=== PATIENT | female | born 1955 | race Caucasian/White ===

== ENCOUNTER 2018-10-30 02:29 | Observation (INO) | payer BC ==
[2018-10-30] MEDS ORDERED: Sodium Chloride 0.9% 1,000 ML IV ONE (02:31)
[2018-10-30] MEDS ORDERED: Haloperidol Lactate 5 MG/ML SDV IM ONE (02:34)
[2018-10-30] MEDS ORDERED: Haloperidol Lactate 5 MG/ML SDV ONE (02:35)
--- NOTE | 2018-10-30 02:40 | EDM.PDOC ---
ED HPI GENERAL MEDICAL PROBLEM - General Stated Complaint: AMBULANCE Time Seen by Provider: 10/30/18 02:36 Source of Information: Reports: Patient - History of Present Illness INITIAL COMMENTS - FREE TEXT/NARRATIVE: HISTORY AND PHYSICAL: History of present illness: []Elliott presents from [facility] via EMS Initial call was for stroke code information is provided via EMS and police Initially police and EMS responded to a person that was unresponsive at [facility] , she is apparently an employee there, she had went for a "lunch" break at 2 a.m., at 1:55 AM police responded to the recall apparently she was unresponsive on arrival beds suspected some facial droop at that time she was not responding to sternal rub, no rhythmic activity was noted activity. She arrives to the emergency room she is awake combative confused, she speaks clearly no slurring however she is very agitated chest symmetrical and purposeful limb movement in all limbs Review of systems: As per history of present illness and below otherwise all systems reviewed and negative. Past medical history: As per history of present illness and as reviewed below otherwise noncontributory. Surgical history: As per history of present illness and as reviewed below otherwise noncontributory. Social history: No reported history of drug or alcohol abuse. Family history: As per history of present illness and as reviewed below otherwise noncontributory. Physical exam: HEENT: Atraumatic, normocephalic, pupils reactive, negative for conjunctival pallor or scleral icterus, mucous membranes moist, throat clear, neck supple, nontender, trachea midline. Lungs: Clear to auscultation, breath sounds equal bilaterally, chest nontender. Heart: S1S2, regular, negative for clicks, rubs, or JVD. Abdomen: Soft, nondistended, nontender. Negative for masses or hepatosplenomegaly. Negative for costovertebral tenderness. Pelvis: Stable nontender. Genitourinary: Deferred. Rectal: Deferred. Extremities: Atraumatic, negative for cords or calf pain. Neurovascular unremarkable. Neuro: Awake, alert, oriented. Cranial nerves II through XII unremarkable. Cerebellum unremarkable. Motor and sensory unremarkable throughout. Exam nonfocal. Diagnostics: []CBC CMP UA troponin INR TSH prolactin EKG Chest [address] no contrast Therapeutics: [] ativan 1 mg IV haloperidol 10 mg IM Aspirin 324 mg chewable Impression: []Altered Mental status-resolved agitation resolved Hyperglycemia leukocytosis no left shift hypothyroid Definitive disposition and diagnosis as appropriate pending reevaluation and review of above. - Related Data Allergies Allergy/AdvReac Type Severity Reaction Status Date / Time No Known Allergies Allergy Verified 03/10/14 10:33 Home Meds: Home Meds . [No Known Home Meds] 03/10/14 [History] ED ROS GENERAL - Review of Systems Review Of Systems: See Below ED EXAM, GENERAL - Physical Exam Exam: See Below Course - Vital Signs Last Recorded V/S: Last Vital Signs Temp 97.1 F 10/30/18 03:48 Pulse 88 10/30/18 03:48 Resp 18 10/30/18 03:48 BP 159/81 H 10/30/18 03:48 Pulse Ox 97 10/30/18 03:48 - Orders/Labs/Meds Orders: Active Orders 24 hr Category Date Time Status EKG Documentation Completion [RC] STAT Care 10/30/18 02:31 Active Labs: Laboratory Tests 10/30/18 10/30/18 10/30/18 Range/Units 02:30 02:30 02:30 WBC 24.55 H (4.0-11.0) K/uL RBC 5.01 (4.30-5.90) M/uL Hgb 15.7 (12.0-16.0) g/dL Hct 47.5 H (36.0-46.0) % MCV 94.8 (80.0-98.0) fL MCH 31.3 (27.0-32.0) pg MCHC 33.1 (31.0-37.0) g/dL RDW Std Deviation 49.8 (28.0-62.0) fl RDW Coeff of Rick 15 (11.0-15.0) % Plt Count 329 (150-400) K/uL MPV 9.80 (7.40-12.00) fL Neut % (Auto) 56.8 (48.0-80.0) % Lymph % (Auto) 39.2 (16.0-40.0) % [place] % (Auto) 3.6 (0.0-15.0) % Eos % (Auto) 0.2 (0.0-7.0) % Baso % (Auto) 0.2 (0.0-1.5) % Neut # (Auto) 13.9 H (1.4-5.7) K/uL Lymph # (Auto) 9.6 H (0.6-2.4) K/uL [place] # (Auto) 0.9 H (0.0-0.8) K/uL Eos # (Auto) 0.1 (0.0-0.7) K/uL Baso # (Auto) 0.1 (0.0-0.1) K/uL Nucleated RBC % 0.0 /100WBC Nucleated RBCs # 0 K/uL INR 0.97 Sodium 140 (136-145) mmol/L Potassium 3.8 (3.5-5.1) mmol/L Chloride 101 (98-107) mmol/L Carbon Dioxide 20.5 L (21.0-32.0) mmol/L BUN 18 (7.0-18.0) mg/dL Creatinine 1.1 H (0.6-1.0) mg/dL Est Cr Clr Drug Dosing 48.33 mL/min Estimated GFR (MDRD) 50.5 ml/min Glucose 220 H (74-106) mg/dL Calcium 9.2 (8.5-10.1) mg/dL Total Bilirubin 0.3 (0.2-1.0) mg/dL AST 18 (15-37) IU/L ALT 21 (14-63) IU/L Alkaline Phosphatase 111 (46-116) U/L Troponin I < 0.050 (0.000-0.056) ng/mL Total Protein 7.8 (6.4-8.2) g/dL Albumin 4.1 (3.4-5.0) g/dL Globulin 3.7 (2.6-4.0) g/dL Albumin/Globulin Ratio 1.1 (0.9-1.6) TSH 3rd Generation 20.34 H (0.36-3.74) uIU/mL Prolactin 14.1 ng/mL Urine Color Urine Appearance Urine pH (5.0-8.0) Ur Specific [place] (1.001-1.035) Urine Protein (NEGATIVE) mg/dL Urine Glucose (UA) (NEGATIVE) mg/dL Urine Ketones (NEGATIVE) mg/dL Urine Occult Blood (NEGATIVE) Urine Nitrite (NEGATIVE) Urine Bilirubin (NEGATIVE) Urine Urobilinogen (<2.0) EU/dL Ur Leukocyte Esterase (NEGATIVE) Urine RBC (0-2/HPF) Urine WBC (0-5/HPF) Ur Epithelial Cells (NONE-FEW) Urine Bacteria (NEGATIVE) Urine Opiates Screen (NEGATIVE) Ur Oxycodone Screen (NEGATIVE) Urine Methadone Screen (NEGATIVE) Ur Barbiturates Screen (NEGATIVE) Ur Phencyclidine Scrn (NEGATIVE) Ur Amphetamine Screen (NEGATIVE) U Methamphetamines Scrn (NEGATIVE) U Benzodiazepines Scrn (NEGATIVE) U Cocaine Metab Screen (NEGATIVE) U Marijuana (THC) Screen (NEGATIVE) Ethyl Alcohol <3 mg/dL 10/30/18 10/30/18 Range/Units 03:25 03:25 WBC (4.0-11.0) K/uL RBC (4.30-5.90) M/uL Hgb (12.0-16.0) g/dL Hct (36.0-46.0) % MCV (80.0-98.0) fL MCH (27.0-32.0) pg MCHC (31.0-37.0) g/dL RDW Std Deviation (28.0-62.0) fl RDW Coeff of Rick (11.0-15.0) % Plt Count (150-400) K/uL MPV (7.40-12.00) fL Neut % (Auto) (48.0-80.0) % Lymph % (Auto) (16.0-40.0) % [place] % (Auto) (0.0-15.0) % Eos % (Auto) (0.0-7.0) % Baso % (Auto) (0.0-1.5) % Neut # (Auto) (1.4-5.7) K/uL Lymph # (Auto) (0.6-2.4) K/uL [place] # (Auto) (0.0-0.8) K/uL Eos # (Auto) (0.0-0.7) K/uL Baso # (Auto) (0.0-0.1) K/uL Nucleated RBC % /100WBC Nucleated RBCs # K/uL INR Sodium (136-145) mmol/L Potassium (3.5-5.1) mmol/L Chloride (98-107) mmol/L Carbon Dioxide (21.0-32.0) mmol/L BUN (7.0-18.0) mg/dL Creatinine (0.6-1.0) mg/dL Est Cr Clr Drug Dosing mL/min Estimated GFR (MDRD) ml/min Glucose (74-106) mg/dL Calcium (8.5-10.1) mg/dL Total Bilirubin (0.2-1.0) mg/dL AST (15-37) IU/L ALT (14-63) IU/L Alkaline Phosphatase (46-116) U/L Troponin I (0.000-0.056) ng/mL Total Protein (6.4-8.2) g/dL Albumin (3.4-5.0) g/dL Globulin (2.6-4.0) g/dL Albumin/Globulin Ratio (0.9-1.6) TSH 3rd Generation (0.36-3.74) uIU/mL Prolactin ng/mL Urine Color YELLOW Urine Appearance CLEAR Urine pH 6.0 (5.0-8.0) Ur Specific [place] 1.020 (1.001-1.035) Urine Protein TRACE H (NEGATIVE) mg/dL Urine Glucose (UA) 100 H (NEGATIVE) mg/dL Urine Ketones NEGATIVE (NEGATIVE) mg/dL Urine Occult Blood NEGATIVE (NEGATIVE) Urine Nitrite NEGATIVE (NEGATIVE) Urine Bilirubin NEGATIVE (NEGATIVE) Urine Urobilinogen 0.2 (<2.0) EU/dL Ur Leukocyte Esterase NEGATIVE (NEGATIVE) Urine RBC 0-2 (0-2/HPF) Urine WBC 0-2 (0-5/HPF) Ur Epithelial Cells OCCASIONAL (NONE-FEW) Urine Bacteria RARE (NEGATIVE) Urine Opiates Screen NEGATIVE (NEGATIVE) Ur Oxycodone Screen NEGATIVE (NEGATIVE) Urine Methadone Screen NEGATIVE (NEGATIVE) Ur Barbiturates Screen NEGATIVE (NEGATIVE) Ur Phencyclidine Scrn NEGATIVE (NEGATIVE) Ur Amphetamine Screen NEGATIVE (NEGATIVE) U Methamphetamines Scrn NEGATIVE (NEGATIVE) U Benzodiazepines Scrn NEGATIVE (NEGATIVE) U Cocaine Metab Screen NEGATIVE (NEGATIVE) U Marijuana (THC) Screen NEGATIVE (NEGATIVE) Ethyl Alcohol mg/dL Meds: Medications Discontinued Medications Generic Name Dose Route Start Last Admin Trade Name Freq PRN Reason Stop Dose Admin Aspirin 324 mg 10/30/18 03:42 10/30/18 03:49 Aspirin PO 10/30/18 03:43 324 mg ONETIME ONE Administration Haloperidol Lactate 10 mg 01/24/19 02:34 10/30/18 02:48 Haldol IM 10/30/18 02:35 10 mg ONETIME ONE Administration Haloperidol Lactate Confirm 10/30/18 02:35 10/30/18 02:48 Haldol Administered 10/30/18 02:36 Not Given Dose 10 mg .ROUTE .STK-MED ONE Sodium Chloride 1,000 mls @ 999 mls/hr 10/30/18 02:31 10/30/18 02:47 Normal Saline IV 10/30/18 03:31 999 mls/hr STAT ONE Administration Departure - Departure Time of Disposition: 03:55 Disposition: Refer to Observation Condition: Fair Clinical Impression: Altered mental status - Discharge Information - My Orders Last 24 Hours: My Active Orders 10/30/18 02:31 EKG Documentation Completion [RC] STAT - Assessment/Plan Last 24 Hours: My Active Orders 10/30/18 02:31 EKG Documentation Completion [RC] STAT
--- NOTE | 2018-10-30 02:59 | CT ---
INDICATION: Right-sided abnormalities, change in mental status TECHNIQUE: CT head without contrast. COMPARISON: None FINDINGS: CSF spaces: Within normal limits for age. Brain parenchyma: The valles-white differentiation is normal. No sign of mass, hemorrhage, or midline shift. Skull base and calvarium: Maxillary sinus mucosal thickening. The visualized orbits are grossly unremarkable. No skull fractures. IMPRESSION: Unremarkable noncontrast head CT. Dictated by Enrico Moses MD @ 10/30/2018 2:57:38 AM Please note that all CT scans at this facility use dose modulation, iterative reconstruction, and/or weight-based dosing when appropriate to reduce radiation dose to as low as reasonably achievable. Dictated by: Enrico Moses MD @ 10/30/2018 02:57:46 (Electronically Signed)
--- NOTE | 2018-10-30 03:19 | CR ---
INDICATION: STROKE CODE-PAIN,SOB TECHNIQUE: Chest 1 view. COMPARISON: None. FINDINGS: Cardiovascular and mediastinum: Heart size and vasculature are normal in caliber and appearance. Mediastinum is within normal limits. Lungs and pleural space: Lungs are clear. No sign of infiltrate or mass. No sign of pleural effusion. No pneumothorax. Bones and soft tissues: No significant findings. IMPRESSION: Unremarkable chest. Dictated by: Enrico Moses MD @ 10/30/2018 03:18:12 (Electronically Signed)
[2018-10-30 03:22] LABS: CHLORIDE,CL 101 mmol/L (98-107); SODIUM,NA 140 mmol/L (136-145)
[2018-10-30] MEDS ORDERED: Aspirin 81 MG Tab.Chew PO ONE (03:42)
[2018-10-30] MEDS: Acetaminophen 325 MG Tab PO PRN ×2 (06:29→12:46)
--- NOTE | 2018-10-30 08:02 | PCM.HP ---
H&P History of Present Illness - General Date of Service: 10/30/18 Admit Problem/Dx: Admission Diagnosis/Problem Admission Diagnosis/Problem Altered mental status Source of Information: Patient History Limitations: Reports: No Limitations - History of Present Illness Initial Comments - Free Text/Narative: This 63 year old female with pmh of tobacco use and untreated HTN presented to the ED via EMS last night after being found unresponsive at her work, [employer]. Per reports she was found after she took a break and was noted to be unresponsive and initially no pulse was noted. By the time she arrived to the ED she was agitated and combative. She was given Haldol. Visiting with Karis this morning, she is alert and oriented. She does not recall much from the night. She does remember going to work and having a horrible headache, one of the worst she has ever had. Denies blurred vision or double vision and no focal deficits. She reports she took a break around midnight and took some Excedrin Migraine worked for a little longer than took another break , unsure of time and then she woke up here. She denies chest pain, SOB, abdominal pain. No neck pain, no current headache, no fevers chills. She reports feeling fine other than the headache the previous day leading up to last night. Her boyfriend at the bedside denies odd behaviors or confusion from her as well. She denies hx of CAD, DM or CVA. No history of migraines, only minor headaches every now and then. No hx of seizures. Family hx of CVA with father otherwise she doesn't know other history or cant remember it. She does not take any medications or supplements at home. No recreational drug use, no alcohol use and smokes 1/3 ppd. She did quit for 14 years then restarted over the last year or so. In the ed Leukocytosis noted at 24,000, Cr 1.1 troponin negative. CXR negative. Headt CT negative. Tox screen negative, alcohol negative. UA negative. TSH noted to be 20.34 and prolactin 14.1. She was admitted for AMS. No PCP currently. Headache Pain Score (Numeric/FACES): 6 - Related Data Allergies/Adverse Reactions: Allergies Allergy/AdvReac Type Severity Reaction Status Date / Time No Known Allergies Allergy Verified 03/10/14 10:33 Home Medications: Home Meds . [No Known Home Meds] 03/10/14 [History] Past Medical History HEENT History: Reports: None Cardiovascular History: Reports: High Cholesterol, Hypertension. Denies: Afib, Blood Clots/VTE/DVT, CAD, NE, Syncope Respiratory History: Reports: COPD (once told she might have COPD). Denies: Sleep Apnea Gastrointestinal History: Reports: None. Denies: GERD, GI Bleed Genitourinary History: Reports: None Musculoskeletal History: Reports: None Neurological History: Reports: None. Denies: Brain Injury, Cerebral Aneurysms, CVA, Headaches, Chronic, Seizure, TIA Psychiatric History: Reports: None. Denies: Anxiety, Depression Endocrine/Metabolic History: Reports: None. Denies: Diabetes, Type II, Hypothyroidism, Obesity/BMI 30+ Hematologic History: Reports: None Immunologic History: Reports: None Oncologic (Cancer) History: Reports: None Dermatologic History: Reports: None - Infectious Disease History Infectious Disease History: Reports: None Other Infectious Disease History: Unable to obtain - Past Surgical History Head Surgeries/Procedures: Reports: None Cardiovascular Surgical History: Reports: None Female Surgical History: Reports: Section Social & Family History - Family History Cardiac: Reports: Hypertension. Denies: Afib Neurological: Reports: CVA (father) - Tobacco Use Smoking Status *Q: Current Every Day Smoker Years of Tobacco use: 7 Packs/Tins Daily: 0.3 Used Tobacco, but Quit: No - Caffeine Use Caffeine Use: Reports: Coffee - Alcohol Use Alcohol Use History: No - Recreational Drug Use Recreational Drug Use: No - Living Situation & Occupation Living situation: Reports: Single Occupation: Employed H&P Review of Systems - Review of Systems: Review Of Systems: See Below General: Reports: Fatigue (feeling very tired this morning). Denies: Fever, Chills, Malaise, Weakness HEENT: Reports: Headaches (bad headache last night before event.). Denies: Sinus Congestion, Sore Throat, Vertigo Pulmonary: Denies: Shortness of Breath, Cough, Sputum Cardiovascular: Reports: No Symptoms. Denies: Chest Pain, Palpitations, Lightheadedness, Syncope Gastrointestinal: Reports: No Symptoms. Denies: Abdominal Pain, Black Stool, Bloody Stool, Decreased Appetite, Nausea, Vomiting Genitourinary: Reports: No Symptoms. Denies: Dysuria, Frequency, Burning, Pain Musculoskeletal: Reports: No Symptoms. Denies: Neck Pain, Shoulder Pain Skin: Reports: No Symptoms Psychiatric: Reports: No Symptoms Neurological: Reports: Headache. Denies: Confusion, Numbness, Paresthesia, Trouble Speaking, Difficulty Walking, Weakness, Change in Speech Hematologic/Lymphatic: Reports: No Symptoms Immunologic: Reports: No Symptoms Exam - Exam Exam: See Below - Vital Signs Vital Signs: Last Vital Signs Temp 97.7 F 10/30/18 05:10 Pulse 78 10/30/18 05:10 Resp 16 10/30/18 05:10 BP 148/86 H 10/30/18 05:10 Pulse Ox 95 10/30/18 05:10 Weight: 58.468 kg - Exam General: Alert, Oriented, Cooperative HEENT: Conjunctiva Clear, Posterior Pharynx Clear, Other (some bite rodriguez noted on R side on tongue.) Neck: Supple, Trachea Midline, Full Range of Motion Lungs: Clear to Auscultation, Normal Respiratory Effort Cardiovascular: Regular Rate, Regular Rhythm, Normal S1, Normal S2. No: Irregular Rhythm, Tachycardia, Systolic Murmur GI/Abdominal Exam: Normal Bowel Sounds, Soft, Non-Tender, No Mass Extremities: Normal Inspection, Normal Range of Motion, Non-Tender, No Pedal Edema, Normal Capillary Refill Neuro Extensive - Mental Status: Alert, Oriented x3, Normal Mood/Affect, Normal Cognition Neuro Extensive - Motor, Sensory, Reflexes: CN II-XII Intact. No: Abnormal Gait , Tongue Deviation (L), Tongue Deviation (R), Expressive Aphasia, Facial palsy ( L), Facial Palsy (R), Facial Palsy w Forehead, Facial Palsy wo Forehead, Hemeplagia (R), Hemeplagia (L), Abnormal Light Touch, Abnormal Motor, Abnormal Pin Prick, Abn 2 Pt Discrimination Psychiatric: Alert, Anxious - Patient Data Lab Results Last 24 hrs: Laboratory Results - last 24 hr 10/30/18 10/30/18 10/30/18 Range/Units 02:30 02:30 02:30 WBC 24.55 H (4.0-11.0) K/uL RBC 5.01 (4.30-5.90) M/uL Hgb 15.7 (12.0-16.0) g/dL Hct 47.5 H (36.0-46.0) % MCV 94.8 (80.0-98.0) fL MCH 31.3 (27.0-32.0) pg MCHC 33.1 (31.0-37.0) g/dL RDW Std Deviation 49.8 (28.0-62.0) fl RDW Coeff of Rick 15 (11.0-15.0) % Plt Count 329 (150-400) K/uL MPV 9.80 (7.40-12.00) fL Neut % (Auto) 56.8 (48.0-80.0) % Lymph % (Auto) 39.2 (16.0-40.0) % [place] % (Auto) 3.6 (0.0-15.0) % Eos % (Auto) 0.2 (0.0-7.0) % Baso % (Auto) 0.2 (0.0-1.5) % Neut # (Auto) 13.9 H (1.4-5.7) K/uL Lymph # (Auto) 9.6 H (0.6-2.4) K/uL [place] # (Auto) 0.9 H (0.0-0.8) K/uL Eos # (Auto) 0.1 (0.0-0.7) K/uL Baso # (Auto) 0.1 (0.0-0.1) K/uL Nucleated RBC % 0.0 /100WBC Nucleated RBCs # 0 K/uL INR 0.97 Sodium 140 (136-145) mmol/L Potassium 3.8 (3.5-5.1) mmol/L Chloride 101 (98-107) mmol/L Carbon Dioxide 20.5 L (21.0-32.0) mmol/L BUN 18 (7.0-18.0) mg/dL Creatinine 1.1 H (0.6-1.0) mg/dL Est Cr Clr Drug Dosing 48.33 mL/min Estimated GFR (MDRD) 50.5 ml/min Glucose 220 H (74-106) mg/dL Calcium 9.2 (8.5-10.1) mg/dL Total Bilirubin 0.3 (0.2-1.0) mg/dL AST 18 (15-37) IU/L ALT 21 (14-63) IU/L Alkaline Phosphatase 111 (46-116) U/L Troponin I < 0.050 (0.000-0.056) ng/mL Total Protein 7.8 (6.4-8.2) g/dL Albumin 4.1 (3.4-5.0) g/dL Globulin 3.7 (2.6-4.0) g/dL Albumin/Globulin Ratio 1.1 (0.9-1.6) TSH 3rd Generation 20.34 H (0.36-3.74) uIU/mL Prolactin 14.1 ng/mL Urine Color Urine Appearance Urine pH (5.0-8.0) Ur Specific [place] (1.001-1.035) Urine Protein (NEGATIVE) mg/dL Urine Glucose (UA) (NEGATIVE) mg/dL Urine Ketones (NEGATIVE) mg/dL Urine Occult Blood (NEGATIVE) Urine Nitrite (NEGATIVE) Urine Bilirubin (NEGATIVE) Urine Urobilinogen (<2.0) EU/dL Ur Leukocyte Esterase (NEGATIVE) Urine RBC (0-2/HPF) Urine WBC (0-5/HPF) Ur Epithelial Cells (NONE-FEW) Urine Bacteria (NEGATIVE) Urine Opiates Screen (NEGATIVE) Ur Oxycodone Screen (NEGATIVE) Urine Methadone Screen (NEGATIVE) Ur Barbiturates Screen (NEGATIVE) Ur Phencyclidine Scrn (NEGATIVE) Ur Amphetamine Screen (NEGATIVE) U Methamphetamines Scrn (NEGATIVE) U Benzodiazepines Scrn (NEGATIVE) U Cocaine Metab Screen (NEGATIVE) U Marijuana (THC) Screen (NEGATIVE) Ethyl Alcohol <3 mg/dL 10/30/18 10/30/18 Range/Units 03:25 03:25 WBC (4.0-11.0) K/uL RBC (4.30-5.90) M/uL Hgb (12.0-16.0) g/dL Hct (36.0-46.0) % MCV (80.0-98.0) fL MCH (27.0-32.0) pg MCHC (31.0-37.0) g/dL RDW Std Deviation (28.0-62.0) fl RDW Coeff of Rick (11.0-15.0) % Plt Count (150-400) K/uL MPV (7.40-12.00) fL Neut % (Auto) (48.0-80.0) % Lymph % (Auto) (16.0-40.0) % [place] % (Auto) (0.0-15.0) % Eos % (Auto) (0.0-7.0) % Baso % (Auto) (0.0-1.5) % Neut # (Auto) (1.4-5.7) K/uL Lymph # (Auto) (0.6-2.4) K/uL [place] # (Auto) (0.0-0.8) K/uL Eos # (Auto) (0.0-0.7) K/uL Baso # (Auto) (0.0-0.1) K/uL Nucleated RBC % /100WBC Nucleated RBCs # K/uL INR Sodium (136-145) mmol/L Potassium (3.5-5.1) mmol/L Chloride (98-107) mmol/L Carbon Dioxide (21.0-32.0) mmol/L BUN (7.0-18.0) mg/dL Creatinine (0.6-1.0) mg/dL Est Cr Clr Drug Dosing mL/min Estimated GFR (MDRD) ml/min Glucose (74-106) mg/dL Calcium (8.5-10.1) mg/dL Total Bilirubin (0.2-1.0) mg/dL AST (15-37) IU/L ALT (14-63) IU/L Alkaline Phosphatase (46-116) U/L Troponin I (0.000-0.056) ng/mL Total Protein (6.4-8.2) g/dL Albumin (3.4-5.0) g/dL Globulin (2.6-4.0) g/dL Albumin/Globulin Ratio (0.9-1.6) TSH 3rd Generation (0.36-3.74) uIU/mL Prolactin ng/mL Urine Color YELLOW Urine Appearance CLEAR Urine pH 6.0 (5.0-8.0) Ur Specific [place] 1.020 (1.001-1.035) Urine Protein TRACE H (NEGATIVE) mg/dL Urine Glucose (UA) 100 H (NEGATIVE) mg/dL Urine Ketones NEGATIVE (NEGATIVE) mg/dL Urine Occult Blood NEGATIVE (NEGATIVE) Urine Nitrite NEGATIVE (NEGATIVE) Urine Bilirubin NEGATIVE (NEGATIVE) Urine Urobilinogen 0.2 (<2.0) EU/dL Ur Leukocyte Esterase NEGATIVE (NEGATIVE) Urine RBC 0-2 (0-2/HPF) Urine WBC 0-2 (0-5/HPF) Ur Epithelial Cells OCCASIONAL (NONE-FEW) Urine Bacteria RARE (NEGATIVE) Urine Opiates Screen NEGATIVE (NEGATIVE) Ur Oxycodone Screen NEGATIVE (NEGATIVE) Urine Methadone Screen NEGATIVE (NEGATIVE) Ur Barbiturates Screen NEGATIVE (NEGATIVE) Ur Phencyclidine Scrn NEGATIVE (NEGATIVE) Ur Amphetamine Screen NEGATIVE (NEGATIVE) U Methamphetamines Scrn NEGATIVE (NEGATIVE) U Benzodiazepines Scrn NEGATIVE (NEGATIVE) U Cocaine Metab Screen NEGATIVE (NEGATIVE) U Marijuana (THC) Screen NEGATIVE (NEGATIVE) Ethyl Alcohol mg/dL Result Diagrams: 10/30/18 08:23 10/30/18 08:23 EKG INTERPRETATION EKG Date: 10/30/18 Rhythm: NSR P-Wave: Present QRS: Normal ST-T: Normal QT: Normal *Q Meaningful Use (ADM) - VTE Risk Assess *Q Each Risk Factor Represents 1 Point: None Total Score 1 Point Risk Factors: 0 Each Risk Factor Represents 2 Points: Age 60 - 74 Years Total Score 2 Point Risk Factors: 2 Each Risk Factor Represents 3 Points: None Total Score 3 Point Risk Factors: 0 Each Risk Factor Represents 5 Points: None Total Score 5 Point Risk Factors: 0 Venous Thromboembolism Risk Factor Score *Q: 2 - Problem List (1) Altered mental status SNOMED Code(s): 054609469 ICD Code: R41.82 - ALTERED MENTAL STATUS, UNSPECIFIED Status: Acute Current Visit: No (2) HTN (hypertension) SNOMED Code(s): 97567161 ICD Code: I10 - ESSENTIAL (PRIMARY) HYPERTENSION Status: Acute Current Visit: Yes (3) Hypothyroid SNOMED Code(s): 18927778 ICD Code: E03.9 - HYPOTHYROIDISM, UNSPECIFIED Status: Acute Current Visit : Yes (4) Tobacco abuse SNOMED Code(s): 812264527 ICD Code: Z72.0 - TOBACCO USE Status: Acute Current Visit: Yes Problem List Initiated/Reviewed/Updated: Yes Orders Last 24hrs: Active Orders 24 hr Category Date Time Status Admission Status [Patient Status] [ADT] Stat ADT 10/30/18 03:56 Active EKG Documentation Completion [RC] STAT Care 10/30/18 02:31 Active Telemetry Monitoring [Cardiac Monitoring] [RC] . Care 10/30/18 05:20 Active DIRECTED Regular Diet [DIET] Diet 10/30/18 Breakfast Active Acetaminophen [Tylenol] Med 10/30/18 05:20 Active 650 mg PO Q6H PRN Medication Orders Acetaminophen (Tylenol) 650 mg PO Q6H PRN PRN Reason: Headache Last Admin: 10/30/18 06:29 Dose: 650 mg Assessment/Plan Comment:: This 63 year old female admitted with AMS 1. AMS: Unclear of etiology. Spoke with Dr Savage regarding case. Will obtained MRI/MRA brain today and further evaluate. Obtain ECHO and monitor on telemetry. CVA less likely, seizure? Will need further work up as outpatient as well and will be scheduled to see Dr Savage as outpatient. Obtain A1c, Lipid panel. Allow elevated BP now unti MRI completed. Spoke to Karis regarding tobacco cessation, she is not interested at this time. She is ambulating well and has no focal deficits, No PT/OT or ST needed at this time. Will continue to monitor. 2. HTN: Monitor at this time. May need antibypertensive started prior to discharge. 3. Hypothyroidism: TSH elevated, will obtained T4. Will start Levothyroxine 75 mcg now. VTE prophylaxis: SCDs Dispo: 1 day pending improvement.
[2018-10-30 09:00] LABS: CHLORIDE,CL 108 mmol/L (98-107); SODIUM,NA 142 mmol/L (136-145)
[2018-10-30 09:43] LABS: HEMOGLOBIN A1C 5.8 % (4.5-6.2)
[2018-10-30] MEDS ORDERED: Ondansetron 4 MG Tab.DIS PO PRN (10:40)
[2018-10-30] MEDS: Levothyroxine 75 MCG Tab PO SCH (11:52)
[2018-10-30] MEDS ORDERED: Gadobenate Dimeglumine 529 MG/ML 20 ML SDV IVPUSH STA (13:30)
[2018-10-30] MEDS ORDERED: LORazepam 2 MG/ML SDV IVPUSH ONE (14:42)
--- NOTE | 2018-10-30 16:21 | MR ---
EXAMINATION: MRI of the brain without contrast HISTORY: Syncope, headache COMPARISON: CT head dated 10/30/2018 TECHNIQUE: Multiplanar and multisequence imaging obtained of the brain without contrast. Motion artifact is noted on several sequences. FINDINGS: There are multifocal areas of increased cortical to subcortical FLAIR signal within the posterior frontal and parietal regions. There is likely a small focus of increased FLAIR signal also within the right cerebellum. These regions do not demonstrate definitively increased diffusion signal. No blooming on the SWI imaging. There is no defined mass, mass effect, or midline shift. No extra-axial fluid collection. The orbits and globes are symmetric. Mild mucosal thickening within the maxillary sinuses. Trace fluid within the right mastoid air cells. Middle ears are otherwise clear. Expected flow voids are present. The midbrain is grossly unremarkable. Ventricles and sulci are symmetric. Calvarial signal is normal. Craniocervical junction is normal. IMPRESSION: 1. Multifocal areas of cortical and subcortical FLAIR signal abnormalities noted bilaterally. Etiology is uncertain however these are somewhat near the watershed zones and could represent infarcts however no abnormal diffusion restriction is demonstrated. Posterior reversible encephalopathy syndrome or a vasculitis is also a consideration. Postcontrast imaging may be beneficial. 2. Mild paranasal sinus disease.
--- NOTE | 2018-10-30 16:25 | MR ---
EXAMINATION: MRA head and neck HISTORY: Syncope COMPARISON: None TECHNIQUE: [id number] imaging obtained through the head and neck without contrast. MIP reconstructions obtained. Moderate motion artifact noted on the neck imaging. FINDINGS: MRA neck: The left common carotid and the trachea cephalic shape. Common origin. Common carotid and vertebral arteries appear grossly normal. Internal carotid arteries are not optimally characterized due to motion however appear grossly patent. Vertebral arteries otherwise appear codominant. MRA head: The vertebral basilar system appears normal. The distal internal carotid arteries are patent. The middle, anterior, and posterior cerebral arteries are normal. The posterior communicating arteries are diminutive the anterior communicating artery is normal. IMPRESSION: 1. Moderate motion artifact noted within the neck however otherwise grossly unremarkable intracranial and extracranial arterial circulation.
[2018-10-30] MEDS ORDERED: Labetalol 20 MG/4 ML Syringe IVPUSH PRN (16:45)
[2018-10-31] MEDS: Acetaminophen 325 MG Tab PO PRN (05:39)
[2018-10-31 06:11] LABS: CHLORIDE,CL 107 mmol/L (98-107); SODIUM,NA 141 mmol/L (136-145)
[2018-10-31] MEDS: Levothyroxine 75 MCG Tab PO SCH (06:30)
[2018-10-31] MEDS ORDERED: Lisinopril 10 MG Tab PO SCH ×2 (07:24→09:00)
[2018-10-31] MEDS ORDERED: levETIRAcetam 500 MG Tab PO SCH (09:03)
--- NOTE | 2018-10-31 09:03 | PCM.CONS ---
H&P History of Present Illness - General Date of Service: 10/31/18 Admit Problem/Dx: Admission Diagnosis/Problem Admission Diagnosis/Problem Altered mental status - History of Present Illness Initial Comments - Free Text/Narative: At baseline, she has mild posterior headaches. Approximately 2 weeks ago, she has severe frontal throbbing headache associated with nausea, light and sound sensitivity. It lasted a few hours. The day before yesterday, she developed a severe headache again that was throbbing bifrontal associated with nausea and light and sound sensitivity. She was at work at the time. She was later found by her employer unconscious sitting in a chair. She arrived emergency department where she was confused and agitated. She was admitted, and mental status improved, but she has continued to have episodic headaches. No f/c, rash , diarrhea. She notes chronic back pain, no new body /muscle ache. ROS notable for chronic cough, which she related to smoking. Headache Pain Score (Numeric/FACES): 6 - Related Data Allergies/Adverse Reactions: Allergies Allergy/AdvReac Type Severity Reaction Status Date / Time No Known Allergies Allergy Verified 03/10/14 10:33 Home Medications: Home Meds . [No Known Home Meds] 03/10/14 [History] Past Medical History HEENT History: Reports: None Cardiovascular History: Reports: High Cholesterol, Hypertension. Denies: Afib, Blood Clots/VTE/DVT, CAD, CO, Syncope Respiratory History: Reports: COPD (once told she might have COPD). Denies: Sleep Apnea Gastrointestinal History: Reports: None. Denies: GERD, GI Bleed Genitourinary History: Reports: None Musculoskeletal History: Reports: None Neurological History: Reports: None. Denies: Brain Injury, Cerebral Aneurysms, CVA, Headaches, Chronic, Seizure, TIA Psychiatric History: Reports: None. Denies: Anxiety, Depression Endocrine/Metabolic History: Reports: None. Denies: Diabetes, Type II, Hypothyroidism, Obesity/BMI 30+ Hematologic History: Reports: None Immunologic History: Reports: None Oncologic (Cancer) History: Reports: None Dermatologic History: Reports: None - Infectious Disease History Infectious Disease History: Reports: None Other Infectious Disease History: Unable to obtain - Past Surgical History Head Surgeries/Procedures: Reports: None Cardiovascular Surgical History: Reports: None Female Surgical History: Reports: Section Social & Family History - Family History Family Medical History: Noncontributory Cardiac: Reports: Hypertension. Denies: Afib Neurological: Reports: CVA (father) - Tobacco Use Smoking Status *Q: Current Every Day Smoker Years of Tobacco use: 7 Packs/Tins Daily: 0.3 Used Tobacco, but Quit: No - Caffeine Use Caffeine Use: Reports: Coffee Other Caffeine Use: Unable to obtain - Recreational Drug Use Recreational Drug Use: No - Living Situation & Occupation Living situation: Reports: Single Occupation: Employed H&P Review of Systems - Review of Systems: Review Of Systems: ROS reveals no pertinent complaints other than HPI. Exam - Exam Exam: See Below - Vital Signs Vital Signs: Last Vital Signs Temp 36.9 C 10/31/18 07:10 Pulse 67 10/31/18 07:25 Resp 18 10/31/18 07:25 BP 188/93 H 10/31/18 07:26 Pulse Ox 94 L 10/31/18 07:25 Weight: 58.468 kg - Exam Physical Exam Comments:: Constitutional: No acute distress Psychiatric: Mood/Affect: normal/appropriate Neurological: Mental Status: General: Normal activity, good hygiene, appropriate appearance. Level of consciousness: Awake, alert. Orientation: Oriented to person, place, time and situation. Concentration/Attention Span: Normal. Comprehension/Praxis: Able to perform a three step command. Language: Fluent and articulate without evidence of aphasia or dysarthria. Thought Content: Normal. Insight/Judgement: Normal. Cranial Nerves: Pupils equally round and reactive to light. Visual allen full to confrontation. Gaze conjugate, EOMI. Sensation intact and symmetric to light touch. Facial strength is full and symmetric. Palate elevates symmetrically. Normal shrug bilaterally. Tongue protrudes midline Motor: Normal tone in all groups. Power 5/5 throughout. Sensation: Sensation is intact to temp, vibratory sense. Deep tendon reflexes: Normoactive throughout. Plantar responses are flexor bilaterally. Coordination: Finger to nose, heel to mack and rapid alternating movements are intact. Gait: Normal casual gait. Eyes: non icteric, Mouth: moist mucus membranes Cardiovascular: RRR Respiratory: clear lungs GI: non tender Skin: no visible rash - Patient Data Lab Results Last 24 hrs: Laboratory Results - last 24 hr 10/30/18 10/30/18 10/30/18 Range/Units 08:23 08:23 08:23 WBC (4.0-11.0) K/uL RBC (4.30-5.90) M/uL Hgb (12.0-16.0) g/dL Hct (36.0-46.0) % MCV (80.0-98.0) fL MCH (27.0-32.0) pg MCHC (31.0-37.0) g/dL RDW Std Deviation (28.0-62.0) fl RDW Coeff of Rick (11.0-15.0) % Plt Count (150-400) K/uL MPV (7.40-12.00) fL Neut % (Auto) (48.0-80.0) % Lymph % (Auto) (16.0-40.0) % [place] % (Auto) (0.0-15.0) % Eos % (Auto) (0.0-7.0) % Baso % (Auto) (0.0-1.5) % Neut # (Auto) (1.4-5.7) K/uL Lymph # (Auto) (0.6-2.4) K/uL [place] # (Auto) (0.0-0.8) K/uL Eos # (Auto) (0.0-0.7) K/uL Baso # (Auto) (0.0-0.1) K/uL Nucleated RBC % /100WBC Nucleated RBCs # K/uL Sodium 142 (136-145) mmol/L Potassium 3.9 (3.5-5.1) mmol/L Chloride 108 H (98-107) mmol/L Carbon Dioxide 24.3 (21.0-32.0) mmol/L BUN 14 (7.0-18.0) mg/dL Creatinine 0.7 (0.6-1.0) mg/dL Est Cr Clr Drug Dosing 66.75 mL/min Estimated GFR (MDRD) > 60.0 ml/min Glucose 199 H (74-106) mg/dL Hemoglobin A1c 5.8 (4.5-6.2) % Calcium 8.6 (8.5-10.1) mg/dL Triglycerides 56 (0-200) mg/dL Cholesterol 183 (50-200) mg/dL LDL Cholesterol, Calc 116 (60-180) mg/dL VLDL Cholesterol 11 (5-55) mg/dL HDL Cholesterol 56 (40-60) mg/dL Cholesterol/HDL Ratio 3.3 (3.3-6.0) Free T4 (0.76-1.46) ng/dL 10/30/18 10/31/18 10/31/18 Range/Units 08:23 05:35 05:35 WBC 13.39 H (4.0-11.0) K/uL RBC 4.97 (4.30-5.90) M/uL Hgb 15.3 (12.0-16.0) g/dL Hct 45.2 (36.0-46.0) % MCV 90.9 (80.0-98.0) fL MCH 30.8 (27.0-32.0) pg MCHC 33.8 (31.0-37.0) g/dL RDW Std Deviation 48.2 (28.0-62.0) fl RDW Coeff of Rick 15 (11.0-15.0) % Plt Count 271 (150-400) K/uL MPV 9.90 (7.40-12.00) fL Neut % (Auto) 46.1 L (48.0-80.0) % Lymph % (Auto) 47.6 H (16.0-40.0) % [place] % (Auto) 5.5 (0.0-15.0) % Eos % (Auto) 0.7 (0.0-7.0) % Baso % (Auto) 0.1 (0.0-1.5) % Neut # (Auto) 6.2 H (1.4-5.7) K/uL Lymph # (Auto) 6.4 H (0.6-2.4) K/uL [place] # (Auto) 0.7 (0.0-0.8) K/uL Eos # (Auto) 0.1 (0.0-0.7) K/uL Baso # (Auto) 0.0 (0.0-0.1) K/uL Nucleated RBC % 0.0 /100WBC Nucleated RBCs # 0 K/uL Sodium 141 (136-145) mmol/L Potassium 4.2 (3.5-5.1) mmol/L Chloride 107 (98-107) mmol/L Carbon Dioxide 27.1 (21.0-32.0) mmol/L BUN 13 (7.0-18.0) mg/dL Creatinine 0.7 (0.6-1.0) mg/dL Est Cr Clr Drug Dosing 66.75 mL/min Estimated GFR (MDRD) > 60.0 ml/min Glucose 98 (74-106) mg/dL Hemoglobin A1c (4.5-6.2) % Calcium 9.2 (8.5-10.1) mg/dL Triglycerides (0-200) mg/dL Cholesterol (50-200) mg/dL LDL Cholesterol, Calc (60-180) mg/dL VLDL Cholesterol (5-55) mg/dL HDL Cholesterol (40-60) mg/dL Cholesterol/HDL Ratio (3.3-6.0) Free T4 0.86 (0.76-1.46) ng/dL Result Diagrams: 10/31/18 05:35 10/31/18 05:35 Imaging Impressions Last 24 hrs: MRI brain 10/30/2018 multifocal T2 flair hyperintense areas involving cortex and subcortical white matter MRA head and neck unremarkable Consult PN Assessment/Plan Procedures: Procedures COMPLETE CBC W/AUTO DIFF WBC (05/22/17) COMPREHEN METABOLIC PANEL (05/22/17) ECHO EXAM OF ABDOMEN (06/05/17) EMERGENCY DEPT VISIT (03/10/14) LIPID PANEL (05/22/17) MRI JOINT UPR EXTREM W/O DYE (04/06/14) ROUTINE VENIPUNCTURE (05/22/17) X-RAY EXAM L-S SPINE 2/3 VWS (06/03/17) X-RAY EXAM OF SHOULDER (03/10/14) (1) Altered mental status SNOMED Code(s): 937195294 Code(s): R41.82 - ALTERED MENTAL STATUS, UNSPECIFIED Current Visit: No Qualifiers: Altered mental status type: transient alteration of awareness Qualified Code(s): R40.4 - Transient alteration of awareness Assessment:: Episode of LOC: Unwitnessed event, but considering the post-ictal confusion and agitation as well as MRI findings, seizure is highly suspected Abnormal MRI: MRI findings could be seen as sequela of seizure or PRES related to HTN. Vasculitis is less likely as there are no areas of restricted diffusion ; if T2 hyperintense areas were ischemia they would be chronic, which is not congruent with clinical presentation. Lack of enhancement renders infection less likely. Some infections such as NAHEED virus do not cause enhancement, but PML findings typically subcortical, and clinical picture does not suggest this. She has had labile BP during admission raising possibility of PRES complicated by seizure. HTN is an uncommon cause of episodic headaches, but it may be the case here considering her labile BP with SBP up to 249. Recs: -Start Keppra 750 mg BID, I discussed this with her -EEG, may be done as outpatient -Discussed no driving for at least 3 months since she had unprovoked loss of consciousness, likely seizure. -I agree with secondary hypertension work up -If she is able to be discharged today or tomorrow, I recommend repeat MRI brain w contrast and f/u with me in about 2 weeks -If she does go home today or tomorrow, I recommend that she avoid being alone for at least the next several days Problem List Initiated/Reviewed/Updated: Yes
--- NOTE | 2018-10-31 11:05 | PCM.DCSUM1 ---
Discharge Summary - Hospital Course Brief History: This 63 year old female with pmh of tobacco use and untreated HTN presented to the ED via EMS last night after being found unresponsive at her work, [employer]. Per reports she was found after she took a break and was noted to be unresponsive and initially no pulse was noted. By the time she arrived to the ED she was agitated and combative. She was given Haldol. Visiting with Karis this morning, she is alert and oriented. She does not recall much from the night. She does remember going to work and having a horrible headache, one of the worst she has ever had. Denies blurred vision or double vision and no focal deficits. She reports she took a break around midnight and took some Excedrin Migraine worked for a little longer than took another break , unsure of time and then she woke up here. She denies chest pain , SOB, abdominal pain. No neck pain, no current headache, no fevers chills. She reports feeling fine other than the headache the previous day leading up to last night. Her boyfriend at the bedside denies odd behaviors or confusion from her as well. She denies hx of CAD, DM or CVA. No history of migraines, only minor headaches every now and then. No hx of seizures. Family hx of CVA with father otherwise she doesn't know other history or cant remember it. She does not take any medications or supplements at home. No recreational drug use, no alcohol use and smokes 1/3 ppd. She did quit for 14 years then restarted over the last year or so. In the ed Leukocytosis noted at 24,000, Cr 1.1 troponin negative. CXR negative. Headt CT negative. Tox screen negative, alcohol negative. UA negative. TSH noted to be 20.34 and prolactin 14.1. She was admitted for AMS. No PCP currently. Diagnosis: Stroke: No - Discharge Data Discharge Date: 10/31/18 Discharge Disposition: Home, Self-Care 01 Condition: Good - Discharge Diagnosis/Problem(s) (1) HTN (hypertension) SNOMED Code(s): 21203019 ICD Code: I10 - ESSENTIAL (PRIMARY) HYPERTENSION Status: Acute Current Visit: Yes (2) Hypothyroid SNOMED Code(s): 44112789 ICD Code: E03.9 - HYPOTHYROIDISM, UNSPECIFIED Status: Acute Current Visit : Yes (3) Tobacco abuse SNOMED Code(s): 559134708 ICD Code: Z72.0 - TOBACCO USE Status: Acute Current Visit: Yes - Patient Instructions Diet: Heart Healthy Diet Activity: No Strenuous Activities Driving: Do Not Drive (Can not drive for 3 months, due to unwitnessed loss of consciousness) Showering/Bathing: May Shower Notify Provider of: Fever, Increased Pain, Swelling and Redness, Drainage, Nausea and/or Vomiting - Discharge Plan *PRESCRIPTION DRUG MONITORING PROGRAM REVIEWED*: Not Applicable *COPY OF PRESCRIPTION DRUG MONITORING REPORT IN PATIENT ALFREDO: Not Applicable Prescriptions/Med Rec: levETIRAcetam [Keppra] 750 mg PO BID #90 tablet Levothyroxine 75 mcg PO ACBREAKFAST #30 tablet Lisinopril 20 mg PO DAILY #30 tablet Home Medications: Home Meds Levothyroxine 75 mcg PO ACBREAKFAST #30 tablet 10/31/18 [Rx] Lisinopril 20 mg PO DAILY #30 tablet 10/31/18 [Rx] levETIRAcetam [Keppra] 750 mg PO BID #90 tablet 10/31/18 [Rx] Oxygen Therapy Mode: Room Air Patient Handouts: Levothyroxine tablets, Levetiracetam tablets, Hypothyroidism , Hypertension, [id number], Lisinopril tablets, Seizure, Adult, [id number] Referrals: [facility] [Outside] Ree Savage MD [Physician] - 11/14/18 2:00 am Faye Bragg PA [Physician Test Engine Operator] - 11/10/18 9:00 am - Discharge Summary/Plan Comment DC Time >30 min.: No Discharge Summary/Plan Comment: Discharge Diagnoses: AMS- resolved Hypertension Headache Hypothyroidism Possible seizure Karis was admitted and monitored after unwitnessed loss of consciousness at work. She was noted to have severe throbbing bifrontal headache with elevated in BP to upwards of 240 SBP. MRI brain obtained which revealed multifocal T2 flair hyperintense areas involving cortex and subcortical white matter, MRA head and neck unremarkable. Dr Savage consulted, please see her note. Concern for possible PRES vs seizures. When CVA ruled out, Lisinopril 20 mg started for hypertension. This am, BP did elevated to 249 SBP. Lisinopril given and brought BP down to 160/90s. She is very eager to be discharged today. We, Dr Hdz and I, explained to her we would like her to stay to monitor BP and be certain that it is controlled. She denies wanting to do this. We explained she potentially could have event like she did on Saturday night which could be harmful to her self and possibly cause or severe injury. She verbally understand this and continues to want to go home. She was encouraged to NOT be alone for next several days and she is UNABLE to drive for 3 months. She did agree to take Keppra 750 mg BID for seizures and will follow up with Dr Savage in 2 weeks for repeat MRI of brain and follow up appointment. She will be prescribed Lisinopril 20 mg daily, encouraged to monitor BP at home. She will also be started on Levothyroxine for hypothyroidism 75 mcg, to be monitored by PCP. She is to return to ED or clinic if concerns should arise. Dr Savage did agree with workup for secondary hypertension, since she is requesting discharge today this will need to be done on an outpatient basis. - General Info Date of Service: 10/31/18 Admission Dx/Problem (Free Text: Admission Diagnosis/Problem Admission Diagnosis/Problem Altered mental status Subjective Update: Up ambulating in room this morning, mild headache. Otherwise asking to be discharged home. Does not want to stay another night. BP better controlled now than this morning. She is alert and oriented. No neck pain, chest pain or dyspnea. No visual concerns. No focal neurological deficits. Functional Status: Reports: Pain Controlled, Tolerating Diet, Ambulating, Urinating - Review of Systems HEENT: Reports: Headaches (mild headache. frontal) Pulmonary: Reports: No Symptoms. Denies: Shortness of Breath Cardiovascular: Reports: No Symptoms. Denies: Chest Pain, Palpitations Gastrointestinal: Reports: No Symptoms. Denies: Abdominal Pain, Nausea, Vomiting Genitourinary: Reports: No Symptoms. Denies: Dysuria, Frequency, Burning Musculoskeletal: Reports: No Symptoms. Denies: Neck Pain Skin: Reports: No Symptoms. Denies: Rash Neurological: Reports: Headache. Denies: Numbness, Paresthesia, Trouble Speaking, Difficulty Walking, Weakness, Change in Speech Psychiatric: Reports: No Symptoms - Patient Data Vitals - Most Recent: Last Vital Signs Temp 98.4 F 10/31/18 07:10 Pulse 77 10/31/18 09:26 Resp 18 10/31/18 07:25 BP 160/70 H 10/31/18 09:26 Pulse Ox 93 L 10/31/18 09:26 Weight - Most Recent: 58.468 kg I&O - Last 24 hours: Intake & Output 10/30/18 10/31/18 10/31/18 22:59 06:59 14:59 Intake Total 780 1000 Output Total 1100 1200 Balance -320 -200 Lab Results - Last 24 hrs: Laboratory Results - last 24 hr 10/30/18 10/31/18 10/31/18 Range/Units 08:23 05:35 05:35 WBC 13.39 H (4.0-11.0) K/uL RBC 4.97 (4.30-5.90) M/uL Hgb 15.3 (12.0-16.0) g/dL Hct 45.2 (36.0-46.0) % MCV 90.9 (80.0-98.0) fL MCH 30.8 (27.0-32.0) pg MCHC 33.8 (31.0-37.0) g/dL RDW Std Deviation 48.2 (28.0-62.0) fl RDW Coeff of Rick 15 (11.0-15.0) % Plt Count 271 (150-400) K/uL MPV 9.90 (7.40-12.00) fL Neut % (Auto) 46.1 L (48.0-80.0) % Lymph % (Auto) 47.6 H (16.0-40.0) % [place] % (Auto) 5.5 (0.0-15.0) % Eos % (Auto) 0.7 (0.0-7.0) % Baso % (Auto) 0.1 (0.0-1.5) % Neut # (Auto) 6.2 H (1.4-5.7) K/uL Lymph # (Auto) 6.4 H (0.6-2.4) K/uL [place] # (Auto) 0.7 (0.0-0.8) K/uL Eos # (Auto) 0.1 (0.0-0.7) K/uL Baso # (Auto) 0.0 (0.0-0.1) K/uL Nucleated RBC % 0.0 /100WBC Nucleated RBCs # 0 K/uL Sodium 141 (136-145) mmol/L Potassium 4.2 (3.5-5.1) mmol/L Chloride 107 (98-107) mmol/L Carbon Dioxide 27.1 (21.0-32.0) mmol/L BUN 13 (7.0-18.0) mg/dL Creatinine 0.7 (0.6-1.0) mg/dL Est Cr Clr Drug Dosing 66.75 mL/min Estimated GFR (MDRD) > 60.0 ml/min Glucose 98 (74-106) mg/dL Calcium 9.2 (8.5-10.1) mg/dL Free T4 0.86 (0.76-1.46) ng/dL Med Orders - Current: Current Medications Acetaminophen (Tylenol) 650 mg PO Q6H PRN PRN Reason: Headache Last Admin: 10/31/18 05:39 Dose: 650 mg Labetalol HCl (Normodyne) 20 mg IVPUSH Q2HR PRN PRN Reason: SBP>180 Last Admin: 10/31/18 05:40 Dose: 20 mg Levetiracetam (Keppra) 750 mg PO BID [facility] Last Admin: 10/31/18 09:33 Dose: 750 mg Levothyroxine Sodium (Levothyroxine) 75 mcg PO ACBREAKFAST [facility] Last Admin: 10/31/18 06:30 Dose: 75 mcg Lisinopril (Prinivil) 20 mg PO DAILY [facility] Last Admin: 10/31/18 07:26 Dose: 20 mg Ondansetron HCl (Zofran Odt) 4 mg PO Q4H PRN PRN Reason: nausea, able to take PO Last Admin: 10/30/18 12:55 Dose: 4 mg Discontinued Medications Aspirin (Aspirin) 324 mg PO ONETIME ONE Stop: 10/30/18 03:43 Last Admin: 10/30/18 03:49 Dose: 324 mg Gadobenate Dimeglumine (Multihance) 20 ml IVPUSH ONETIME STA Stop: 10/30/18 13:31 Last Admin: 10/30/18 15:32 Dose: Not Given Haloperidol Lactate (Haldol) 10 mg IM ONETIME ONE Stop: 10/30/18 02:35 Last Admin: 10/30/18 02:48 Dose: 10 mg Haloperidol Lactate (Haldol) Confirm Administered Dose 10 mg .ROUTE .STK-MED ONE Stop: 10/30/18 02:36 Last Admin: 10/30/18 02:48 Dose: Not Given Sodium Chloride (Normal Saline) 1,000 mls @ 999 mls/hr IV STAT ONE Stop: 10/30/18 03:31 Last Admin: 10/30/18 02:47 Dose: 999 mls/hr Lisinopril (Prinivil) 20 mg PO DAILY TIFFANIE Lorazepam (Ativan) 0.5 mg IVPUSH ONETIME ONE Stop: 10/30/18 14:43 Last Admin: 10/30/18 15:00 Dose: 0.5 mg - Exam General: Reports: Alert, Oriented, Cooperative, No Acute Distress Lungs: Reports: Clear to Auscultation, Normal Respiratory Effort Cardiovascular: Reports: Regular Rate, Regular Rhythm GI/Abdominal Exam: Normal Bowel Sounds, Soft, Non-Tender, No Organomegaly Back Exam: Reports: Normal Inspection, Full Range of Motion Extremities: Normal Inspection, Normal Range of Motion, Non-Tender Neurological: Reports: No New Focal Deficit, Normal Gait, Normal Speech Psy/Mental Status: Reports: Alert, Normal Affect, Normal Mood
--- NOTE | 2018-11-04 13:16 | ECHO ---
EXAM DATE: 10/30/18 PATIENT'S AGE: 63 The echocardiogram report can be seen in this patient's EMR (Electronic Medical Record) in the Reports section. The report has also been scanned into PACs. JANE
== END 2018-10-31 11:50 | disposition home or self-care (01) ==
LOC: MW.ED 02:29 → MW.MS 03:56
PROVIDERS: ADMIT Internal Medicine; ATTEND Internal Medicine
DX: R41.82 Altered mental status, unspecified (principal); I10 Essential (primary) hypertension; E03.9 Hypothyroidism, unspecified; F17.210 Nicotine dependence, cigarettes, uncomplicated; Z79.899 Other long term (current) drug therapy; E78.00 Pure hypercholesterolemia, unspecified; J44.9 Chronic obstructive pulmonary disease, unspecified
CPT/HCPCS: 36415; 70450; 70544; 70547; 70551; 71045; 80048; 80053; 80061; 80305; 81001; 83036; 84146; 84439; 84443; 84484; 85025; 85610; 93005; 93306; 96361; 96372; 96374; 96375; 99285; A9270; G0378; G0480; J1630; J2060; J3490; J7040; 96360; 99284

== ENCOUNTER 2024-12-04 11:08 | Inpatient (IN) | payer BC, MEDICARE ==
[2024-12-04 11:34] LABS: HEMATOCRIT 43.7 % (37.0-47.0); HEMOGLOBIN 14.8 g/dL (12.0-16.0); MEAN CORPUSCULAR HEMOGLOBIN 30.3 pg (28.0-32.0); MEAN CORPUSCULAR HGB CONC 33.9 g/dL (32.0-36.0); MEAN CORPUSCULAR VOLUME 89.4 fL (83.0-99.0); MEAN PLATELET VOLUME 10.5 fL (9.4-12.3); PLATELET COUNT,PLT 170 K/uL (150-400); RED BLOOD CELL COUNT 4.89 M/uL (4.10-5.30); WHITE BLOOD CELL COUNT,WBC 6.17 K/uL (3.9-11.3)
[2024-12-04] MEDS: Sodium Chloride 0.9% 1,000 ML IV ONE (11:36)
[2024-12-04] MEDS: methylPREDNISolone Sodium Succinate 125 MG/2 ML SDV IVPUSH ONE (11:37)
[2024-12-04] MEDS: Cefepime 2 GM in Sodium Chloride 0.9% 50 ML IV ONE (11:37)
[2024-12-04] MEDS: Albuterol/Ipratropium 3.0-0.5 MG/3 ML Neb Soln NEB ONE (11:40)
[2024-12-04] MEDS: Magnesium Sulf/Wat 2 GM/50 mL 2 GM in Premix Bag 1 BAG IV ONE (11:40)
[2024-12-04 11:45] LABS: PH,VENOUS 7.34 (7.31-7.41)
[2024-12-04 12:14] LABS: ALBUMIN 3.7 g/dL (3.4-5.0); BILIRUBIN TOTAL 0.4 mg/dL (0.2-1.0); CALCIUM 8.3 mg/dL (8.5-10.1); CARBON DIOXIDE,CO2 25.9 mmol/L (21.0-32.0); CREATININE 1.9 mg/dL (0.6-1.0); EST CRCL DRUG DOSING (CG) 22.72 mL/min; MAGNESIUM 2.4 mg/dL (1.8-2.4); POTASSIUM,K 3.2 mmol/L (3.5-5.1); PROTEIN TOTAL,TP 7.3 g/dL (6.4-8.2)
[2024-12-04 12:18] LABS: BAND ABSOLUTE MAN 0.06; BAND PERCENT MAN 1 %; LYMPHOCYTES ABSOLUTE MAN 1.79 K/uL (1.00-4.80); LYMPHOCYTES PERCENT MAN 29 % (24-44); MONOCYTES ABSOLUTE MAN 0.62 K/uL (0.00-0.80); MONOCYTES PERCENT MAN 10 % (0-8); SEG NEUTROPHILS PERCENT MAN 60 % (41-71)
[2024-12-04 12:19] LABS: LACTIC ACID 1.3 mmol/L (0.4-2.0)
[2024-12-04 12:52] LABS: CORONAVIRUS COVID-19 NAA NEGATIVE (NEGATIVE); INFLUENZA A NAA POSITIVE (NEGATIVE); INFLUENZA B NAA NEGATIVE (NEGATIVE); RESPIRATORY SYNCYTIAL VIR NAA NEGATIVE (NEGATIVE)
[2024-12-04] MEDS: Oseltamivir 30 MG Cap PO STA (13:43)
[2024-12-04 14:40] LABS: BILIRUBIN,URINE NEGATIVE (NEGATIVE); COLOR,URINE YELLOW; GLUCOSE,URINE NEGATIVE (NEGATIVE); KETONES,URINE TRACE mg/dL (NEGATIVE); LEUKOCYTE ESTERASE,URINE NEGATIVE (NEGATIVE); NITRITE,URINE NEGATIVE (NEGATIVE); OCCULT BLOOD,URINE MODERATE (NEGATIVE); PROTEIN,URINE 100 mg/dL (NEGATIVE); UROBILINOGEN,URINE 0.2 EU/dL (<2.0)
[2024-12-04 14:43] LABS: APPEARANCE,URINE HAZY
[2024-12-04 14:50] LABS: BACTERIA,URINE FEW (NEGATIVE); MUCUS,URINE LIGHT (NONE-MOD); SQUAMOUS EPITHELIAL CELLS,UR FEW; WBC,URINE 0-2 (0-5/HPF)
[2024-12-04] MEDS: Potassium Chloride 20 MEQ Tab.ER PO ONE (14:51)
[2024-12-04 15:36] LABS: TSH ULTRASENSITIVE 15.19 uIU/mL (0.36-3.74)
[2024-12-04 15:54] LABS: T4 FREE 0.9 ng/dL (0.76-1.46)
[2024-12-04] MEDS: cefTRIAXone 1 GM in Sodium Chloride 0.9% 50 ML IV SCH (16:33)
[2024-12-04] MEDS: Albuterol/Ipratropium 3.0-0.5 MG/3 ML Neb Soln NEB SCH (17:20)
[2024-12-04] MEDS: Sodium Chloride 0.9% 1,000 ML IV SCH (18:49)
[2024-12-04] MEDS ORDERED: levETIRAcetam 500 MG Tab PO SCH (21:00)
[2024-12-05 06:49] LABS: HEMATOCRIT 40.2 % (37.0-47.0); HEMOGLOBIN 12.9 g/dL (12.0-16.0); MEAN CORPUSCULAR HEMOGLOBIN 29.6 pg (28.0-32.0); MEAN CORPUSCULAR HGB CONC 32.1 g/dL (32.0-36.0); MEAN CORPUSCULAR VOLUME 92.2 fL (83.0-99.0); MEAN PLATELET VOLUME 10.7 fL (9.4-12.3); PLATELET COUNT,PLT 152 K/uL (150-400); RED BLOOD CELL COUNT 4.36 M/uL (4.10-5.30); WHITE BLOOD CELL COUNT,WBC 6.39 K/uL (3.9-11.3)
[2024-12-05 07:17] LABS: LYMPHOCYTES ABSOLUTE MAN 2.04 K/uL (1.00-4.80); LYMPHOCYTES PERCENT MAN 32 % (24-44); METAMYELOCYTE ABSOLUTE MAN 0.06; METAMYELOCYTE PERCENT MAN 1 %; MONOCYTES ABSOLUTE MAN 0.77 K/uL (0.00-0.80); MONOCYTES PERCENT MAN 12 % (0-8); SEG NEUTROPHILS ABSOLUTE MAN 3.51 K/uL (1.80-7.70); SEG NEUTROPHILS PERCENT MAN 55 % (41-71)
[2024-12-05 07:21] LABS: A/G RATIO 0.8 (0.9-1.6); ALBUMIN 2.5 g/dL (3.4-5.0); BILIRUBIN TOTAL 0.2 mg/dL (0.2-1.0); CALCIUM 8.1 mg/dL (8.5-10.1); CARBON DIOXIDE,CO2 30.4 mmol/L (21.0-32.0); EST CRCL DRUG DOSING (CG) 42.4 mL/min; POTASSIUM,K 3.4 mmol/L (3.5-5.1); PROTEIN TOTAL,TP 5.6 g/dL (6.4-8.2)
[2024-12-05] MEDS ORDERED: Levothyroxine 75 MCG Tab PO SCH (07:30)
[2024-12-05] MEDS: Potassium Chloride 20 MEQ Tab.ER PO ONE (09:29)
[2024-12-05] MEDS: Oseltamivir 30 MG Cap PO SCH (09:29)
[2024-12-05] MEDS: methylPREDNISolone Sodium Succinate 40 MG/1 ML SDV IVPUSH SCH (09:29)
[2024-12-05] MEDS: LORazepam 0.5 MG Tab PO PRN (21:05)
[2024-12-05] MEDS: Lisinopril 10 MG Tab PO SCH (21:05)
[2024-12-06 07:08] LABS: BASOPHILS ABSOLUTE AUTO 0.01 K/uL (0.00-0.20); BASOPHILS PERCENT AUTO 0.1 % (0.0-1.0); HEMATOCRIT 41.3 % (37.0-47.0); HEMOGLOBIN 12.9 g/dL (12.0-16.0); IMMATURE GRAN ABSOLUTE AUTO 0.03 K/uL (0.00-0.05); IMMATURE GRAN PERCENT AUTO 0.3 % (0.0-0.4); LYMPHOCYTES ABSOLUTE AUTO 2.47 K/uL (1.00-4.80); LYMPHOCYTES PERCENT AUTO 27.6 % (24.0-44.0); MEAN CORPUSCULAR HEMOGLOBIN 29.1 pg (28.0-32.0); MEAN CORPUSCULAR HGB CONC 31.2 g/dL (32.0-36.0); MEAN CORPUSCULAR VOLUME 93.2 fL (83.0-99.0); MEAN PLATELET VOLUME 10.6 fL (9.4-12.3); MONOCYTES ABSOLUTE AUTO 0.84 K/uL (0.00-0.80); MONOCYTES PERCENT AUTO 9.4 % (0.0-8.0); NEUTROPHILS ABSOLUTE AUTO 5.61 K/uL (1.80-7.70); NEUTROPHILS PERCENT AUTO 62.6 % (41.0-71.0); PLATELET COUNT,PLT 148 K/uL (150-400); RED BLOOD CELL COUNT 4.43 M/uL (4.10-5.30); WHITE BLOOD CELL COUNT,WBC 8.96 K/uL (3.9-11.3)
[2024-12-06 07:40] LABS: CALCIUM 8.5 mg/dL (8.5-10.1); CARBON DIOXIDE,CO2 31.8 mmol/L (21.0-32.0); CREATININE 0.6 mg/dL (0.6-1.0); EST CRCL DRUG DOSING (CG) 70.67 mL/min; MAGNESIUM 1.5 mg/dL (1.8-2.4); POTASSIUM,K 3.8 mmol/L (3.5-5.1)
[2024-12-06] MEDS ORDERED: Magnesium Sulfate/Water 2 GM/50 ML Premix Bag IV ONE (11:56)
[2024-12-06] MEDS: Magnesium Sulf/Wat 2 GM/50 mL 2 GM in Premix Bag 1 BAG IV ONE (12:44)
[2024-12-06] MEDS: Oseltamivir 75 MG Cap PO SCH (20:50)
[2024-12-07 06:21] LABS: BASOPHILS ABSOLUTE AUTO 0.01 K/uL (0.00-0.20); BASOPHILS PERCENT AUTO 0.1 % (0.0-1.0); EOSINOPHILS ABSOLUTE AUTO 0.01 K/uL (0.00-0.45); EOSINOPHILS PERCENT AUTO 0.1 % (0.0-6.0); HEMATOCRIT 43.3 % (37.0-47.0); HEMOGLOBIN 13.5 g/dL (12.0-16.0); IMMATURE GRAN ABSOLUTE AUTO 0.03 K/uL (0.00-0.05); IMMATURE GRAN PERCENT AUTO 0.4 % (0.0-0.4); LYMPHOCYTES ABSOLUTE AUTO 2.09 K/uL (1.00-4.80); LYMPHOCYTES PERCENT AUTO 27.2 % (24.0-44.0); MEAN CORPUSCULAR HEMOGLOBIN 29.2 pg (28.0-32.0); MEAN CORPUSCULAR HGB CONC 31.2 g/dL (32.0-36.0); MEAN CORPUSCULAR VOLUME 93.7 fL (83.0-99.0); MEAN PLATELET VOLUME 9.9 fL (9.4-12.3); MONOCYTES ABSOLUTE AUTO 0.87 K/uL (0.00-0.80); MONOCYTES PERCENT AUTO 11.3 % (0.0-8.0); NEUTROPHILS ABSOLUTE AUTO 4.67 K/uL (1.80-7.70); NEUTROPHILS PERCENT AUTO 60.9 % (41.0-71.0); PLATELET COUNT,PLT 179 K/uL (150-400); RED BLOOD CELL COUNT 4.62 M/uL (4.10-5.30); WHITE BLOOD CELL COUNT,WBC 7.68 K/uL (3.9-11.3)
[2024-12-07 06:45] LABS: CALCIUM 8.6 mg/dL (8.5-10.1); CARBON DIOXIDE,CO2 33.9 mmol/L (21.0-32.0); CREATININE 0.7 mg/dL (0.6-1.0); EST CRCL DRUG DOSING (CG) 60.57 mL/min; MAGNESIUM 1.9 mg/dL (1.8-2.4); POTASSIUM,K 4.1 mmol/L (3.5-5.1)
[2024-12-07] MEDS: guaiFENesin 600 MG Tab.ER PO SCH (15:02)
[2024-12-07] MEDS: hydrALAZINE 20 MG/ML SDV IVPUSH PRN (19:11)
[2024-12-07] MEDS ORDERED: hydrALAZINE 20 MG/ML SDV IVPUSH PRN (20:54)
[2024-12-07] MEDS: amLODIPine 2.5 MG Tab PO ONE (21:22)
[2024-12-07] MEDS: Albuterol/Ipratropium 3.0-0.5 MG/3 ML Neb Soln NEB PRN (22:07)
[2024-12-08 06:05] LABS: BASOPHILS ABSOLUTE AUTO 0.01 K/uL (0.00-0.20); BASOPHILS PERCENT AUTO 0.1 % (0.0-1.0); EOSINOPHILS ABSOLUTE AUTO 0.02 K/uL (0.00-0.45); EOSINOPHILS PERCENT AUTO 0.3 % (0.0-6.0); HEMATOCRIT 46.4 % (37.0-47.0); IMMATURE GRAN ABSOLUTE AUTO 0.04 K/uL (0.00-0.05); IMMATURE GRAN PERCENT AUTO 0.6 % (0.0-0.4); LYMPHOCYTES PERCENT AUTO 22.3 % (24.0-44.0); MEAN CORPUSCULAR HEMOGLOBIN 29.2 pg (28.0-32.0); MEAN CORPUSCULAR HGB CONC 32.3 g/dL (32.0-36.0); MEAN CORPUSCULAR VOLUME 90.4 fL (83.0-99.0); MEAN PLATELET VOLUME 9.8 fL (9.4-12.3); MONOCYTES ABSOLUTE AUTO 0.75 K/uL (0.00-0.80); MONOCYTES PERCENT AUTO 10.5 % (0.0-8.0); NEUTROPHILS ABSOLUTE AUTO 4.74 K/uL (1.80-7.70); NEUTROPHILS PERCENT AUTO 66.2 % (41.0-71.0); PLATELET COUNT,PLT 236 K/uL (150-400); RED BLOOD CELL COUNT 5.13 M/uL (4.10-5.30); WHITE BLOOD CELL COUNT,WBC 7.16 K/uL (3.9-11.3)
[2024-12-08 06:31] LABS: A/G RATIO 0.9 (0.9-1.6); BILIRUBIN TOTAL 0.4 mg/dL (0.2-1.0); CALCIUM 8.9 mg/dL (8.5-10.1); CARBON DIOXIDE,CO2 34.9 mmol/L (21.0-32.0); CREATININE 0.7 mg/dL (0.6-1.0); EST CRCL DRUG DOSING (CG) 60.57 mL/min; MAGNESIUM 1.6 mg/dL (1.8-2.4); POTASSIUM,K 2.9 mmol/L (3.5-5.1); PROTEIN TOTAL,TP 6.4 g/dL (6.4-8.2)
[2024-12-08] MEDS ORDERED: NS with KCl 40mEq 1,000 ML IV SCH (07:00)
[2024-12-08] MEDS: amLODIPine 5 MG Tab PO SCH (08:09)
[2024-12-08] MEDS: Potassium Chloride 10% 20 MEQ/15 ML Soln 15 ML UD Cup PO ONE (08:09)
[2024-12-08] MEDS: Enoxaparin 40 MG/0.4 ML Syringe SUBCUT SCH (08:25)
[2024-12-08] MEDS: Magnesium Sulf/Wat 4 GM/100 mL 4 GM in Premix Bag 1 BAG IV ONE (22:20)
[2024-12-09 05:49] LABS: BASOPHILS ABSOLUTE AUTO 0.02 K/uL (0.00-0.20); BASOPHILS PERCENT AUTO 0.2 % (0.0-1.0); EOSINOPHILS ABSOLUTE AUTO 0.03 K/uL (0.00-0.45); EOSINOPHILS PERCENT AUTO 0.3 % (0.0-6.0); HEMATOCRIT 48.5 % (37.0-47.0); HEMOGLOBIN 15.6 g/dL (12.0-16.0); IMMATURE GRAN ABSOLUTE AUTO 0.06 K/uL (0.00-0.05); IMMATURE GRAN PERCENT AUTO 0.6 % (0.0-0.4); LYMPHOCYTES ABSOLUTE AUTO 2.54 K/uL (1.00-4.80); LYMPHOCYTES PERCENT AUTO 25.4 % (24.0-44.0); MEAN CORPUSCULAR HEMOGLOBIN 29.1 pg (28.0-32.0); MEAN CORPUSCULAR HGB CONC 32.2 g/dL (32.0-36.0); MEAN CORPUSCULAR VOLUME 90.3 fL (83.0-99.0); MEAN PLATELET VOLUME 9.2 fL (9.4-12.3); MONOCYTES ABSOLUTE AUTO 1.25 K/uL (0.00-0.80); MONOCYTES PERCENT AUTO 12.5 % (0.0-8.0); NEUTROPHILS ABSOLUTE AUTO 6.09 K/uL (1.80-7.70); PLATELET COUNT,PLT 303 K/uL (150-400); RED BLOOD CELL COUNT 5.37 M/uL (4.10-5.30); WHITE BLOOD CELL COUNT,WBC 9.99 K/uL (3.9-11.3)
[2024-12-09 06:17] LABS: A/G RATIO 0.9 (0.9-1.6); ALBUMIN 3.2 g/dL (3.4-5.0); BILIRUBIN TOTAL 0.4 mg/dL (0.2-1.0); CARBON DIOXIDE,CO2 33.8 mmol/L (21.0-32.0); CREATININE 0.7 mg/dL (0.6-1.0); EST CRCL DRUG DOSING (CG) 60.57 mL/min; MAGNESIUM 2.4 mg/dL (1.8-2.4); POTASSIUM,K 3.8 mmol/L (3.5-5.1); PROTEIN TOTAL,TP 6.8 g/dL (6.4-8.2)
[2024-12-09 10:22] LABS: BICARBONATE,ARTERIAL 32 mEq/L (22-26); PCO2 ARTERIAL 39 mmHG (35-45); PO2 ARTERIAL 55 mmHG (80-105)
[2024-12-09] MEDS: amLODIPine 5 MG Tab PO SCH (10:41)
[2024-12-09] MEDS: Chlorthalidone 25 MG Tab PO SCH (10:41)
[2024-12-09] MEDS: Losartan 50 MG Tab PO SCH (10:42)
[2024-12-09] MEDS: Tiotropium Bromide 4 GM Inhalation Spray (2.5mcg/1 dose; 10 doses) INH SCH (10:51)
[2024-12-10 06:37] LABS: BASOPHILS ABSOLUTE AUTO 0.02 K/uL (0.00-0.20); BASOPHILS PERCENT AUTO 0.2 % (0.0-1.0); EOSINOPHILS ABSOLUTE AUTO 0.12 K/uL (0.00-0.45); EOSINOPHILS PERCENT AUTO 1.3 % (0.0-6.0); HEMATOCRIT 46.7 % (37.0-47.0); HEMOGLOBIN 15.5 g/dL (12.0-16.0); IMMATURE GRAN ABSOLUTE AUTO 0.04 K/uL (0.00-0.05); IMMATURE GRAN PERCENT AUTO 0.4 % (0.0-0.4); LYMPHOCYTES ABSOLUTE AUTO 2.49 K/uL (1.00-4.80); LYMPHOCYTES PERCENT AUTO 27.8 % (24.0-44.0); MEAN CORPUSCULAR HEMOGLOBIN 29.9 pg (28.0-32.0); MEAN CORPUSCULAR HGB CONC 33.2 g/dL (32.0-36.0); MEAN CORPUSCULAR VOLUME 90.2 fL (83.0-99.0); MEAN PLATELET VOLUME 9.7 fL (9.4-12.3); MONOCYTES ABSOLUTE AUTO 0.99 K/uL (0.00-0.80); NEUTROPHILS PERCENT AUTO 59.3 % (41.0-71.0); PLATELET COUNT,PLT 338 K/uL (150-400); RED BLOOD CELL COUNT 5.18 M/uL (4.10-5.30); WHITE BLOOD CELL COUNT,WBC 8.96 K/uL (3.9-11.3)
[2024-12-10 07:04] LABS: A/G RATIO 0.9 (0.9-1.6); ALBUMIN 3.3 g/dL (3.4-5.0); BILIRUBIN TOTAL 0.6 mg/dL (0.2-1.0); CALCIUM 9.5 mg/dL (8.5-10.1); CARBON DIOXIDE,CO2 33.4 mmol/L (21.0-32.0); CREATININE 0.7 mg/dL (0.6-1.0); EST CRCL DRUG DOSING (CG) 60.57 mL/min; MAGNESIUM 1.9 mg/dL (1.8-2.4); PROTEIN TOTAL,TP 6.8 g/dL (6.4-8.2)
[2024-12-10] MEDS ORDERED: Acetaminophen 325 MG Tab PO PRN (20:25)
[2024-12-11] MEDS: Furosemide 20 MG Tab PO ONE (06:35)
== END 2024-12-11 21:45 | disposition home or self-care (01) | DRG 193 ==
LOC: MW.ED 11:08 → MW.MS 13:53
PROVIDERS: ADMIT Internal Medicine; ATTEND Internal Medicine
PROC: 4A033R1 Measurement of Arterial Saturation, Peripheral, Percutaneous Approach (ICD-10-PCS; principal; 2024-12-04)
PROC: 5A0935A Assistance with Respiratory Ventilation, Less than 24 Consecutive Hours, High Flow/Velocity Cannula (ICD-10-PCS; 2024-12-06)
DX: J10.1 Influenza due to other identified influenza virus with other respiratory manifestations (principal); J96.01 Acute respiratory failure with hypoxia; R09.02 Hypoxemia; J44.1 Chronic obstructive pulmonary disease with (acute) exacerbation; J44.9 Chronic obstructive pulmonary disease, unspecified; F17.210 Nicotine dependence, cigarettes, uncomplicated; Z75.8 Other problems related to medical facilities and other health care; N17.9 Acute kidney failure, unspecified; E78.00 Pure hypercholesterolemia, unspecified; E83.42 Hypomagnesemia; E87.6 Hypokalemia; I10 Essential (primary) hypertension; E86.0 Dehydration; Z98.891 History of uterine scar from previous surgery; Z72.0 Tobacco use; Z79.899 Other long term (current) drug therapy
CPT/HCPCS: 0241U; 36415; 36600; 71045; 80048; 80053; 81001; 82803; 83605; 83690; 83735; 83880; 84439; 84443; 85025; 87040; 93005; 94640; 94667; 94668; 96365; 96368; 96375; 99285; 93010; 99284; A9270-GY; J0360; J0692; J0696; J2919; J3475; J3490; J7030; J7620-GY